=== PATIENT | female | born 1970 | race Caucasian/White ===

== ENCOUNTER 2021-03-05 22:02 | Emergency (ER) | payer MEDICAID ==
[~2021-03-05] VITALS: Ht 165.1 cm; Wt 65.9 kg
[~2021-03-05 22:02] MED LIST: CEPH250C92 PO; CLON-528 PO; IBUP-1984 PO; SULF-14 PO
--- NOTE | 2021-03-05 22:35 | NUR ---
Pt denies allergy to acetaminophen. She states she is only allergic to hydrocodone in [place].
[2021-03-05 23:24] VITALS: BP 136/77
== END 2021-03-05 23:25 | disposition home or self-care (01) ==
LOC: ER 22:04
DX: R51.9 Headache, unspecified (principal); R22.0 Localized swelling, mass and lump, head; F41.9 Anxiety disorder, unspecified; Z88.5 Allergy status to narcotic agent; Z79.899 Other long term (current) drug therapy
CPT/HCPCS: 99281